=== PATIENT | female | born 1990 | race Caucasian/White ===

== ENCOUNTER 2016-12-09 09:44 | Emergency (ER) | payer OTHER ==
[~2016-12-09] VITALS: Ht 162.6 cm; Wt 127.3 kg
[2016-12-09] MEDS ORDERED: JANU50TA4 PO (10:01)
[2016-12-09] MEDS ORDERED: AUGM875T28 PO (10:01)
[2016-12-09] MEDS ORDERED: NAPR500T3 PO (10:47)
[2016-12-09] MEDS ORDERED: ACET30TAB PO ×2 (10:47→11:03)
[2016-12-09] MEDS ORDERED: ZITHTAB PO (10:47)
[2016-12-09 11:17] VITALS: BP 158/89
== END 2016-12-09 11:18 | disposition home or self-care (01) ==
LOC: M ED 09:44
DX: H66.93 Otitis media, unspecified, bilateral (principal); H60.93 Unspecified otitis externa, bilateral; E11.9 Type 2 diabetes mellitus without complications; Z79.84 Long term (current) use of oral hypoglycemic drugs